=== PATIENT | female | born 1955 | race Caucasian/White ===

== ENCOUNTER 2018-10-29 17:18 | Inpatient (IN) | payer OTHER ==
[~2018-10-29] VITALS: Ht 165.1 cm; Wt 70.0 kg
[~2018-10-29 17:18] MED LIST: ASPI81EC PO; CARV6.25 PO; CHOL10002 PO; CLON.1 PO; KRILL OIL PO
[2018-10-29] MEDS ORDERED: Coreg12.5 MG PO (17:27)
[2018-10-29] MEDS ORDERED: Amlodipine Bes2.5 MG PO (17:27)
[2018-10-29] MEDS ORDERED: Cyclobenzaprine5 MG PO (17:27)
[2018-10-29] MEDS ORDERED: MICROZIDE12.5 MG PO (17:27)
[2018-10-29 17:57] LABS: BASOPHILS ABSOLUTE AUTO 0.05 K/mm3 (0.00-0.23); BASOPHILS PERCENT AUTO 1 % (0-2); EOSINOPHILS ABSOLUTE AUTO 0.06 K/mm3 (0.00-0.68); EOSINOPHILS PERCENT AUTO 1 % (0-6); Hematocrit 39.2 % (33.0-51.0); Hemoglobin 13.4 g/dL (11.5-16.0); IMMATURE GRAN ABSOLUTE AUTO 0.03 K/mm3 (0.00-0.10); IMMATURE GRAN PERCENT AUTO 0 % (0-1); LYMPHOCYTES ABSOLUTE AUTO 1.93 K/mm3 (0.84-5.20); LYMPHOCYTES PERCENT AUTO 20 % (21-46); MONOCYTES ABSOLUTE AUTO 0.65 K/mm3 (0.16-1.47); MONOCYTES PERCENT AUTO 7 % (4-13); Mean Corpuscular HGB 31.9 pg (26.0-34.0); Mean Corpuscular HGB Conc 34.2 g/dL (31.5-36.5); Mean Corpuscular Volume 93 fL (80-100); Mean Platelet Volume 10.7 fL (9.1-12.4); NEUTROPHILS ABSOLUTE AUTO 6.83 K/mm3 (1.96-9.15); NEUTROPHILS PERCENT AUTO 72 % (41-73); Platelet Count 316 K/mm3 (150-400); RDW Coefficient Variation 11.7 % (11.7-14.2); RDW Standard Deviation 39.8 fL (35.1-46.3); White Blood Cell Count 9.55 K/mm3 (4.00-11.30)
[2018-10-29 18:19] LABS: Alanine Aminotransfer (ALT/SGP 19 U/L (12-78); Albumin, Blood 3.9 g/dL (3.4-5.0); Alk Phos 155 U/L (50-136); Anion Gap 6 mmol/L (6-16); Aspartate Aminotrans (AST/SGOT 24 U/L (12-37); Bilirubin, Total 0.4 mg/dL (0.1-1.0); Blood Urea Nitrogen 23 mg/dL (8-24); CO2, Blood 26 mmol/L (21-32); Calcium, Blood 9.4 mg/dL (8.5-10.1); Chloride, Blood 106 mmol/L (98-108); Creatinine, Blood 0.82 mg/dL (0.40-1.00); Glomerular Filtration Rate >60 (60-); Glucose, Blood 115 mg/dL (70-99); Potassium, Blood 4.3 mmol/L (3.5-5.5); Sodium, Blood 138 mmol/L (136-145); Total Protein, Blood 7.9 g/dL (6.4-8.2); Troponin I <0.015 ng/mL (0.000-0.040)
[2018-10-29] MEDS ORDERED: ACYC400 PO (19:51)
[2018-10-29] MEDS ORDERED: Aspir 8181 MG PO (19:53)
[2018-10-29] MEDS ORDERED: AMIT25 PO (19:53)
--- NOTE | 2018-10-29 21:01 | NUR ---
Transfer report from Nory NOLAN on female PT 63 with complaints of chest pain with neg troponin. She has been followed by cardiology and has lt cardiac cath scheduled for this with DR Lind. Currently resting after dilaudid given in ER. Await admission.Will be on tele monitoring cardiac diet. Echo planned
[2018-10-29] MEDS ORDERED: NAPR220 PO (22:36)
--- NOTE | 2018-10-30 04:28 | NUR ---
PT admitted with lt upper epigastric pain 09/15 that radiated to lt breast. PT has ODILIA wears home cpap. DR Ventura updated on lack of cpap protocil and dilaudid ordered every 20 minutes. PT has lt heart cardiac cath ordered outpt for . NPO and consult called. Pallative care consultalso called. CPAP protocol order obtained RT notified. On tele monitor NSR BBB. VSS. CO intermittant nausea. 2nd troponin negative. CO sob with exertion over 1 year, followed by Lui Tran.
--- NOTE | 2018-10-30 08:30 | NUR ---
PT QUITE PLEASANT COOP A/O DENIES PAIN. STATES IF ANY, IS LIGHT RT ABD UPPER. MAYBE 02/15. H/R REG, NO MURMER NOTED. PER TELE NSR AT 88. LUNGS CLEAR. RESP EASY, UNLABORED ON R.A. BT X4 LAST BM LAST NITE. VOIDS PER BATHROOM, INDEPENDANT IN ROOM. BED IN LOW POSITION, CALL LITE IN [facility], CALLS APPROP CONTINUES NPO FOR POSS ANGIO TODAY.
--- NOTE | 2018-10-30 10:11 | NUR ---
PT BP 119/63 P 90. STATES IF TAKES ALL B/P MEDS WILL DROP TOO LOW. STATES DOES TAKE ALL HAS BEEN UNABLE TO FUNCTION SOMETIMES. CALLED DR CARRANZA. HOLD NORERIK AND JH, GIVE COREG. RECOMMENDED TO PT TO TAKE BP BEFORE AND 1-2 HRS AFTER TAKES MEDS, TAKE RESULTS TO . ALSO TO REQUEST HER DR FOR A SLIDING SCALE ON TAKING BP MEDS IF STILL CONCERNED
--- NOTE | 2018-10-30 11:43 | NUR ---
1030 DR PERALTA OKAYED PT TO EAT UNTIL SEEN BY CARDIO 1100 CARDIO CALLED, TO DO ANGIO THIS AFT AT 330, [employer] 300. KEEP NPO
--- NOTE | 2018-10-30 13:50 | NUR ---
Per admit trigger, I met with Lynne to offer information about ACP. She does not feel she needs AD or POLST. "My daughter knows what to do." She is also hopeful for full recovery. No fears or concerns presented. She is satisfied with her Full Code status. I will remain available.
--- NOTE | 2018-10-30 15:09 | NUR ---
Echocardiogram completed
--- NOTE | 2018-10-30 16:26 | NUR ---
PT OUT TO CARDIAC GLASS MAKER AT 1535 PT ITEMS TO NEW PCU ROOM 161
--- NOTE | 2018-10-30 18:09 | NUR ---
SHIFT SUMMARY PT ALERT AND ORIENTED. VS STABLE. RIGHT RADIAL SITE WITH TR BAND IN PLACE 10CC OF AIR. PER [facility]ART CENTER STAFF THERE WAS NO STENTS PLACED. PT COMPLAINS OF RUQ PAIN AND TREATED PER EMAR. PAIN IS WORSE AFTER EATING PER PT. PT EDUCATED ON RIGHT ARM RESTRICTIONS. FAMILY AT BEDSIDE. WILL CONTINUE TO MONITOR CLOSELY AND REPORT TO ONCOMING RN. CALL LIGHT IN REACH.
[2018-10-31 04:16] LABS: BASOPHILS ABSOLUTE AUTO 0.04 K/mm3 (0.00-0.23); BASOPHILS PERCENT AUTO 0 % (0-2); EOSINOPHILS PERCENT AUTO 0 % (0-6); Hematocrit 34.4 % (33.0-51.0); Hemoglobin 11.4 g/dL (11.5-16.0); IMMATURE GRAN ABSOLUTE AUTO 0.08 K/mm3 (0.00-0.10); IMMATURE GRAN PERCENT AUTO 0 % (0-1); LYMPHOCYTES ABSOLUTE AUTO 1.07 K/mm3 (0.84-5.20); LYMPHOCYTES PERCENT AUTO 6 % (21-46); MONOCYTES ABSOLUTE AUTO 1.26 K/mm3 (0.16-1.47); MONOCYTES PERCENT AUTO 7 % (4-13); Mean Corpuscular HGB 31.8 pg (26.0-34.0); Mean Corpuscular HGB Conc 33.1 g/dL (31.5-36.5); Mean Platelet Volume 10.5 fL (9.1-12.4); NEUTROPHILS ABSOLUTE AUTO 16.04 K/mm3 (1.96-9.15); NEUTROPHILS PERCENT AUTO 87 % (41-73); Platelet Count 221 K/mm3 (150-400); RDW Coefficient Variation 11.7 % (11.7-14.2); RDW Standard Deviation 41.2 fL (35.1-46.3); Red Blood Cell Count 3.58 M/mm3 (3.80-5.20); White Blood Cell Count 18.49 K/mm3 (4.00-11.30)
[2018-10-31 04:17] LABS: Mean Corpuscular Volume 96 fL (80-100)
[2018-10-31 04:36] LABS: Alanine Aminotransfer (ALT/SGP 24 U/L (12-78); Albumin/Globulin Ratio 0.8 (0.8-1.8); Alk Phos 121 U/L (50-136); Anion Gap 7 mmol/L (6-16); Aspartate Aminotrans (AST/SGOT 19 U/L (12-37); Bilirubin, Total 1.4 mg/dL (0.1-1.0); Blood Urea Nitrogen 23 mg/dL (8-24); Bun/Creatinine Ratio 27.2 (12.0-20.0); CO2, Blood 28 mmol/L (21-32); Calcium, Blood 8.6 mg/dL (8.5-10.1); Chloride, Blood 103 mmol/L (98-108); Creatinine, Blood 0.85 mg/dL (0.40-1.00); Globulin, Blood 3.8 g/dL (2.2-4.0); Glomerular Filtration Rate >60 (60-); Glucose, Blood 118 mg/dL (70-99); Potassium, Blood 3.4 mmol/L (3.5-5.5); Sodium, Blood 138 mmol/L (136-145); Total Protein, Blood 6.8 g/dL (6.4-8.2)
--- NOTE | 2018-10-31 05:22 | NUR ---
SHIFT SUMMARY PT SLEEPING IN ROOM COMFORTABLY AT THIS TIME. NO ACUTE CHNAGES IN STATUS T/O NIGHT. PT SLEPT WELL, WOKE ONCE TO PAIN AND WAS MEDICATED PER EMAR. RESP EVEN UNLABORED ON RA W/ SATS >92%. TR BAND WAS FULLY DEFLATED AND TR BAND REMOVED WITH WINDOW DRESSING IN PLACE. SITE WNL, NO HEMATOMA NOTED, NO BRUSING. ARM BOARD REMAINS IN PLACE. DENIED CP, DENIES SOB. CALL LIGHT IN REACH. PT INDEPENDENT IN ROOM. CALLS APPROPRIATELY.
--- NOTE | 2018-10-31 08:00 | NUR ---
PT LAYING IN BED AWAKE A/OX3, PLEASANT AND COOPERATIVE WITH CARE, FOLLOWS COMMANDS WELL, DENIES PAIN AT THIS TIME, BUT REPORTS WHEN SHE EATS SHE HAS PAIN, LUNGS ARE CLEAR DIM IN BASES, RESP EVEN AND UNLABORED, NO COUGH NOTED, HRR, TELE IN PLACE RUNNING SR PER MONITOR, SEE STRIP, NO EDEMA NOTED, PPP+2, CAP REFILL <3SEC, VS STABLE, AFEBRILE, IV SITE IS CLEAR AND PATENT, BTX4, ABD FLAT SOFT NONTENDER, VOIDS WITHOUT DIFF, SKIN C/W/D, MAEW, LARA, CALL LIGHT IN REACH. PLAN WAS TO HAVE A HIDDA SCAN BUT NM STATES THEY WONT BE ABLE TO GET TO IT TODAY.
--- NOTE | 2018-10-31 09:55 | NUR ---
Dr. Lind in to see pt, cleared her for surg, Dr. Urbina called and was able to speak to Dr. Lind. pt doing ok, call light in reach.
--- NOTE | 2018-10-31 10:27 | NUR ---
was just notified by day surgery that she will go for surgery tomorrow, as she ate breakfast this am. call light in reach.
--- NOTE | 2018-10-31 18:30 | NUR ---
pt has been medicated for pain several times today, gets very painful after being up to bathroom, states if she holds still she has no pain. visitor in room. no acute changes, will be having surgery in am. npo after mid. call light in reach.
[2018-11-01 03:37] LABS: BASOPHILS ABSOLUTE AUTO 0.04 K/mm3 (0.00-0.23); BASOPHILS PERCENT AUTO 0 % (0-2); EOSINOPHILS PERCENT AUTO 0 % (0-6); Hematocrit 32.5 % (33.0-51.0); Hemoglobin 10.7 g/dL (11.5-16.0); IMMATURE GRAN ABSOLUTE AUTO 0.15 K/mm3 (0.00-0.10); IMMATURE GRAN PERCENT AUTO 1 % (0-1); LYMPHOCYTES ABSOLUTE AUTO 0.91 K/mm3 (0.84-5.20); LYMPHOCYTES PERCENT AUTO 4 % (21-46); MONOCYTES ABSOLUTE AUTO 0.91 K/mm3 (0.16-1.47); MONOCYTES PERCENT AUTO 4 % (4-13); Mean Corpuscular HGB 31.7 pg (26.0-34.0); Mean Corpuscular HGB Conc 32.9 g/dL (31.5-36.5); Mean Corpuscular Volume 96 fL (80-100); Mean Platelet Volume 10.5 fL (9.1-12.4); NEUTROPHILS ABSOLUTE AUTO 19.86 K/mm3 (1.96-9.15); NEUTROPHILS PERCENT AUTO 91 % (41-73); Platelet Count 218 K/mm3 (150-400); RDW Coefficient Variation 11.9 % (11.7-14.2); RDW Standard Deviation 41.7 fL (35.1-46.3); Red Blood Cell Count 3.38 M/mm3 (3.80-5.20); White Blood Cell Count 21.87 K/mm3 (4.00-11.30)
[2018-11-01 03:57] LABS: Albumin, Blood 2.6 g/dL (3.4-5.0); Albumin/Globulin Ratio 0.6 (0.8-1.8); Bilirubin, Total 1.5 mg/dL (0.1-1.0); Bun/Creatinine Ratio 21.5 (12.0-20.0); Calcium, Blood 8.6 mg/dL (8.5-10.1); Creatinine, Blood 1.21 mg/dL (0.40-1.00); Globulin, Blood 4.2 g/dL (2.2-4.0); Potassium, Blood 3.3 mmol/L (3.5-5.5); Total Protein, Blood 6.8 g/dL (6.4-8.2)
--- NOTE | 2018-11-01 05:27 | NUR ---
SHIFT SUMMARY PT SLEEPING IN ROOM COMFORTABLY AT THIS TIME. NO ACUTE CHANGES IN STATSU T.O NIGHT. PT WAS MEDICATED FOR PAIN AT APPROX 2100, AND PT WAS ABLE TO SLEEP T/O NIGHT. PT AWOKE AT APPROX 0430 TO USE RR, REQUESTED PAIN MEDS. PT TO RR AND BACK TO BED W/O ASSIST. REPORTS PAIN INCREASES W/ MOVEMENT. RESP EVEN UNLABORED ON RA W/ SATS >92%. DENIES CP, REPORTS ALL PAIN IS IN R ABD/FLANK. DENIES OTHER NEEDS. PT WAS NPO SINCE 0000 FOR LAP FAYE THIS AM. CALL LIGHT IN REACH.
--- NOTE | 2018-11-01 06:35 | NUR ---
DAY SURGERY RN TO ROOM TO TAKE PT TO SURGERY.
--- NOTE | 2018-11-01 07:00 | NUR ---
History, Chart, Medications and Allergies reviewed before start of procedure. Lungs clear T/O to Auscultation. Patient confirms NPO status and agrees with scheduled surgery. Pre-Op teaching done. Pt verbalizes understanding.
--- NOTE | 2018-11-01 07:10 | NUR ---
REPORT RECIEVED FROM STEVIE NOLAN. PT IS IN PACU FOR LAP FAYE PROCEDURE. WILL ASSUME CARE POST-OP.
--- NOTE | 2018-11-01 12:26 | NUR ---
DRAINED 20CC S/S DRAINAGE OUT OF DOYLE DRAIN, UNABLE TO DOCUMENT IN I&o
--- NOTE | 2018-11-01 12:45 | NUR ---
INITIAL ASSESSMENT: REPORT RECIEVED FROM GLENDA BERMUDEZ, PACU. PER RN PATIENT HAD A LAP FAYE, THE PTS GALLBLADDER WAS GANGRENOUS AND THERE WAS AN ABCESS IN BETWEEN THE GALLBLADDER AND LIVER. THE ABCESS WAS DRAINED AND A DOYLE WAS PLACED. PATIENT ARRIVED TO PCU 11 VIA GURNEY AND WAS SLID TO BED. PT IS SLEEPY BUT AWAKENS WITH VERBAL STIMULI. PT REPORTS HER PAIN IS 2/10 IN HER ABD. HRR, SR WITH A BBB IN THE 80S PER TELEMETRY. LS DIM IN THE BASES, BIOX WNL ON 2L VIA NC. PT IS TAKING SHALLOW BREATHS, PT ENCOURAGED TO TAKE DEEP BREATHS. WHEN AWAKE WILL PROVIDE IS Q1 WA. BT HYPOACTIVE. PT HAS 4X ABD INCISION WITH GAUZE DRESSINGS WITH MEFIX TAPE, CDI. DOYLE DRAIN TO RIGHHT ABD, SECURE AND DRAINING SERRO-SANG DRAINAGE. VSS. PPP. NO EDEMA NOTED. PT ROLLED TO GET EXTRA LINEN OUT. PTS AT BEDSIDE. PT AND DENY OTHER NEEDS. ICE CHIPS GIVEN UNTIL PT IS MORE AWAKE. CALL LIGHT IN REACH, WILL CONTINUE TO MONITO
--- NOTE | 2018-11-01 17:15 | NUR ---
PATIENT HAS BEEN DOING WELL PSOT-OP. CALL PLACED TO DR. PERALTA FOR STATUS CHANGE, PT IS STABLE AND HAS BEEN TOLERATING CLEAR LIQUIDS. REPORT GIVEN TO [facility] RN. PT TRANSFERRED TO [facility] VIA BED.
--- NOTE | 2018-11-01 17:53 | NUR ---
TRANSFER: REPORT RECIEVED FROM BUTTING SAW OPERATORGERI NOLAN. PT TO SURGICAL UNIT AT ABOUT 1720, UPON ASSESSMENT PT IS A/O. SURGICAL SITES WNL, DOYLE DRAINED 20ML BRIGHT RED BLOOD. PT REPORTS HAS BEEN UP AND VOIDED. RATES PAIN 6/10. 0.5 DILAUDID GIVEN. WILL CTM AND PASS REPORT TO NOC RN.
[2018-11-02 05:31] LABS: BASOPHILS ABSOLUTE AUTO 0.03 K/mm3 (0.00-0.23); BASOPHILS PERCENT AUTO 0 % (0-2); EOSINOPHILS ABSOLUTE AUTO 0.01 K/mm3 (0.00-0.68); EOSINOPHILS PERCENT AUTO 0 % (0-6); Hematocrit 29.1 % (33.0-51.0); Hemoglobin 9.6 g/dL (11.5-16.0); IMMATURE GRAN ABSOLUTE AUTO 0.06 K/mm3 (0.00-0.10); IMMATURE GRAN PERCENT AUTO 0 % (0-1); LYMPHOCYTES ABSOLUTE AUTO 0.79 K/mm3 (0.84-5.20); LYMPHOCYTES PERCENT AUTO 6 % (21-46); MONOCYTES ABSOLUTE AUTO 0.76 K/mm3 (0.16-1.47); MONOCYTES PERCENT AUTO 6 % (4-13); Mean Corpuscular HGB 31.7 pg (26.0-34.0); Mean Corpuscular Volume 96 fL (80-100); Mean Platelet Volume 10.7 fL (9.1-12.4); NEUTROPHILS ABSOLUTE AUTO 12.04 K/mm3 (1.96-9.15); NEUTROPHILS PERCENT AUTO 88 % (41-73); Platelet Count 227 K/mm3 (150-400); RDW Coefficient Variation 12.1 % (11.7-14.2); RDW Standard Deviation 42.4 fL (35.1-46.3); Red Blood Cell Count 3.03 M/mm3 (3.80-5.20); White Blood Cell Count 13.69 K/mm3 (4.00-11.30)
[2018-11-02 06:02] LABS: Albumin, Blood 2.1 g/dL (3.4-5.0); Albumin/Globulin Ratio 0.5 (0.8-1.8); Bilirubin, Total 0.8 mg/dL (0.1-1.0); Bun/Creatinine Ratio 24.1 (12.0-20.0); Calcium, Blood 8.1 mg/dL (8.5-10.1); Creatinine, Blood 1.16 mg/dL (0.40-1.00); Potassium, Blood 3.4 mmol/L (3.5-5.5); Total Protein, Blood 6.1 g/dL (6.4-8.2)
--- NOTE | 2018-11-02 08:15 | NUR ---
POD 1 S/P LAP FAYE. PT VSS T/O NIGHT. DRESSING CDI. PAIN MGD PER EMAR W/REP RELIEF. PT UP OOB W/SBA, BRUNO WELL. PT BRUNO SM AMT PO, NO C/O N/V, NO FLATUS YET. IV ABX CONT PER ORDERS. PT USING CALL LIGHT FOR ASSISTANCE, REP GIVEN TO DAY RN.
--- NOTE | 2018-11-02 14:22 | NUR ---
DOYLE DRAIN EMPTIED, 60ML SS FLUID.
--- NOTE | 2018-11-02 19:30 | NUR ---
SHIFT SUMMARY. POD1 LAP FAYE. PATIENT HAS BEEN ALERT AND ORIENTED. AMBULATORY DURING SHIFT. INDEPENDENT IN ROOM TO BATHROOM. NO BM AND REPORTS MINIMAL AMOUNT OF GAS. PAIN MANAGED WITH 2 NORCO DURING SHIFT. LAP SITES COVERED IN GAUZE CDI. DOYLE DRAIN ON RLQ EMPTIED ONCE WITH 60ML OUT. PLAN IS TO DISCHARGE TOMORROW.
[2018-11-03 05:46] LABS: BASOPHILS ABSOLUTE AUTO 0.03 K/mm3 (0.00-0.23); BASOPHILS PERCENT AUTO 0 % (0-2); EOSINOPHILS ABSOLUTE AUTO 0.12 K/mm3 (0.00-0.68); EOSINOPHILS PERCENT AUTO 1 % (0-6); Hematocrit 30.8 % (33.0-51.0); Hemoglobin 10.1 g/dL (11.5-16.0); IMMATURE GRAN ABSOLUTE AUTO 0.04 K/mm3 (0.00-0.10); IMMATURE GRAN PERCENT AUTO 0 % (0-1); LYMPHOCYTES ABSOLUTE AUTO 1.12 K/mm3 (0.84-5.20); LYMPHOCYTES PERCENT AUTO 11 % (21-46); MONOCYTES PERCENT AUTO 8 % (4-13); Mean Corpuscular HGB 31.9 pg (26.0-34.0); Mean Corpuscular HGB Conc 32.8 g/dL (31.5-36.5); Mean Corpuscular Volume 97 fL (80-100); Mean Platelet Volume 10.5 fL (9.1-12.4); NEUTROPHILS ABSOLUTE AUTO 8.23 K/mm3 (1.96-9.15); NEUTROPHILS PERCENT AUTO 80 % (41-73); Platelet Count 262 K/mm3 (150-400); RDW Standard Deviation 43.5 fL (35.1-46.3); Red Blood Cell Count 3.17 M/mm3 (3.80-5.20); White Blood Cell Count 10.34 K/mm3 (4.00-11.30)
[2018-11-03 06:15] LABS: Albumin, Blood 2.2 g/dL (3.4-5.0); Albumin/Globulin Ratio 0.5 (0.8-1.8); Bilirubin, Total 0.6 mg/dL (0.1-1.0); Bun/Creatinine Ratio 18.3 (12.0-20.0); Calcium, Blood 8.5 mg/dL (8.5-10.1); Creatinine, Blood 1.09 mg/dL (0.40-1.00); Globulin, Blood 4.5 g/dL (2.2-4.0); Potassium, Blood 3.4 mmol/L (3.5-5.5); Total Protein, Blood 6.7 g/dL (6.4-8.2)
[2018-11-03] MEDS ORDERED: ACET325 PO (13:02)
[2018-11-03] MEDS ORDERED: HYDR1TAB94 PO ×2 (13:03→13:11)
[2018-11-03] MEDS ORDERED: ONDA4ODT MM (13:04)
[2018-11-03] MEDS ORDERED: AMOCLA875 PO (13:10)
--- NOTE | 2018-11-03 13:36 | NUR ---
Patient up to Ambulate independently. Gait steady. Discharge instructions reviewed with patient. Patient verbalizes understanding. Copy given to patient to take home. Dressing to procedure site clean, dry, intact with no visible drainage, swelling, erythema or bruising noted. Patient States Post-Procedure ride home has been arranged. Discharged via wheelchair to private car for ride home. Prescriptions sent with daughter to [facility].
== END 2018-11-03 13:30 | disposition home or self-care (01) | DRG 418 ==
LOC: ER 17:18 → MEDS 17:19 → PCU 17:19 → MEDS 17:19 → PCU 10-30 17:19 → SURS 11-01 17:25
PROVIDERS: Family Medicine; Internal Medicine Gastroenterology; Physician Assistant; Surgery; ADMIT Hospitalist
PROC: BF12YZZ Fluoroscopy of Gallbladder using Other Contrast (ICD-10-PCS; 2018-11-01)
PROC: B2111ZZ Fluoroscopy of Multiple Coronary Arteries using Low Osmolar Contrast (ICD-10-PCS; 2018-11-01)
PROC: 4A023N7 Measurement of Cardiac Sampling and Pressure, Left Heart, Percutaneous Approach (ICD-10-PCS; 2018-11-01)
PROC: 0FT44ZZ Resection of Gallbladder, Percutaneous Endoscopic Approach (ICD-10-PCS; principal; 2018-11-01 09:00)
DX: K80.00 Calculus of gallbladder with acute cholecystitis without obstruction (principal); I25.110 Atherosclerotic heart disease of native coronary artery with unstable angina pectoris; K82.A1 Gangrene of gallbladder in cholecystitis; I10 Essential (primary) hypertension; N28.9 Disorder of kidney and ureter, unspecified; E78.5 Hyperlipidemia, unspecified; G47.33 Obstructive sleep apnea (adult) (pediatric); G47.00 Insomnia, unspecified; D64.9 Anemia, unspecified
CPT/HCPCS: 36415; 71046; 74300; 76705; 80053; 83690; 83880; 84484; 85025; 88304; 93005; 93010; 93306; 93454; 94762; 96361; 96372; 96374; 96375; 96376; 99152; 99153; 99285-25; A9270; A9270-GY; C1729; C1769; C1894; C9113; G0378; J0171; J0330; J1170; J1644; J1650; J1885; J2250; J2370; J2405; J2543; J2704; J2710; J3010; J7030; J7120; Q9967

== ENCOUNTER → 2018-12-07 | Outpatient (CLI) | payer OTHER ==
[~2018-12-07] MED LIST changes: +ACET325 PO; +ACYC400 PO; +AMIT25 PO; +AMOCLA875 PO; +Amlodipine Bes2.5 MG PO; +Aspir 8181 MG PO; +Coreg12.5 MG PO; +Cyclobenzaprine5 MG PO; +HYDR1TAB94 PO; +MICROZIDE12.5 MG PO; +NAPR220 PO; +ONDA4ODT MM
[2018-12-11 15:07] LABS: HPV 16 Negative (Negative); HPV 18 Negative (Negative); HPV OTHER HR TYPES Negative (Negative)
== END | disposition home or self-care (01) ==
LOC: LAB EV 10:40 → LAB SHORT 10:40
PROVIDERS: Nurse Practitioner Family
DX: Z01.419 Encounter for gynecological examination (general) (routine) without abnormal findings (principal); N76.0 Acute vaginitis; B96.89 Other specified bacterial agents as the cause of diseases classified elsewhere
CPT/HCPCS: 87070; 87205; 87624; G0145

== ENCOUNTER 2019-09-19 09:00 | Day surgery (SDC) | payer OTHER ==
[~2019-09-19] VITALS: Ht 162.6 cm; Wt 69.0 kg
[~2019-09-19 09:00] MED LIST changes: +CHOLP
== END 2019-09-19 12:16 | disposition home or self-care (01) ==
LOC: ORSCSDS 09:00
PROVIDERS: Student in an Organized Health Care Education/Training Program
PROC: 0DBK8ZX Excision of Ascending Colon, Via Natural or Artificial Opening Endoscopic, Diagnostic (ICD-10-PCS; principal; 2019-09-19 10:30)
PROC: 0DB78ZX Excision of Stomach, Pylorus, Via Natural or Artificial Opening Endoscopic, Diagnostic (ICD-10-PCS; principal; 2019-09-19 10:30)
PROC: 0DBH8ZX Excision of Cecum, Via Natural or Artificial Opening Endoscopic, Diagnostic (ICD-10-PCS; principal; 2019-09-19 10:30)
PROC: 0DB58ZX Excision of Esophagus, Via Natural or Artificial Opening Endoscopic, Diagnostic (ICD-10-PCS; principal; 2019-09-19 10:30)
PROC: 0DBN8ZX Excision of Sigmoid Colon, Via Natural or Artificial Opening Endoscopic, Diagnostic (ICD-10-PCS; principal; 2019-09-19 10:30)
PROC: 0DBE8ZX Excision of Large Intestine, Via Natural or Artificial Opening Endoscopic, Diagnostic (ICD-10-PCS; principal; 2019-09-19 10:30)
PROC: 0DB98ZX Excision of Duodenum, Via Natural or Artificial Opening Endoscopic, Diagnostic (ICD-10-PCS; principal; 2019-09-19 10:30)
DX: R19.7 Diarrhea, unspecified (principal); R13.14 Dysphagia, pharyngoesophageal phase; K30 Functional dyspepsia; K31.7 Polyp of stomach and duodenum; K29.70 Gastritis, unspecified, without bleeding; K44.9 Diaphragmatic hernia without obstruction or gangrene; K22.2 Esophageal obstruction; I10 Essential (primary) hypertension; Z79.899 Other long term (current) drug therapy
CPT/HCPCS: 88305; 88342; J2704; J7120

== ENCOUNTER 2020-07-14 18:51 | Emergency (ER) | payer OTHER ==
[~2020-07-14] VITALS: Ht 162.6 cm; Wt 65.8 kg
[2020-07-14 19:18] LABS: BASOPHILS ABSOLUTE AUTO 0.04 K/mm3 (0.00-0.23); BASOPHILS PERCENT AUTO 1 % (0-2); EOSINOPHILS ABSOLUTE AUTO 0.01 K/mm3 (0.00-0.68); EOSINOPHILS PERCENT AUTO 0 % (0-6); Hematocrit 39.6 % (33.0-51.0); Hemoglobin 13.4 g/dL (11.5-16.0); IMMATURE GRAN ABSOLUTE AUTO 0.01 K/mm3 (0.00-0.10); IMMATURE GRAN PERCENT AUTO 0 % (0-1); LYMPHOCYTES ABSOLUTE AUTO 2.31 K/mm3 (0.84-5.20); LYMPHOCYTES PERCENT AUTO 29 % (21-46); MONOCYTES ABSOLUTE AUTO 0.53 K/mm3 (0.16-1.47); MONOCYTES PERCENT AUTO 7 % (4-13); Mean Corpuscular HGB 31.5 pg (26.0-34.0); Mean Corpuscular HGB Conc 33.8 g/dL (31.5-36.5); Mean Corpuscular Volume 93 fL (80-100); Mean Platelet Volume 10.3 fL (9.1-12.4); NEUTROPHILS ABSOLUTE AUTO 5.15 K/mm3 (1.96-9.15); NEUTROPHILS PERCENT AUTO 64 % (41-73); Platelet Count 281 K/mm3 (150-400); RDW Coefficient Variation 11.4 % (11.7-14.2); RDW Standard Deviation 38.9 fL (35.1-46.3); Red Blood Cell Count 4.26 M/mm3 (3.80-5.20); White Blood Cell Count 8.05 K/mm3 (4.00-11.30)
[2020-07-14 19:40] LABS: Alanine Aminotransfer (ALT/SGP 15 U/L (12-78); Albumin, Blood 3.9 g/dL (3.4-5.0); Albumin/Globulin Ratio 0.9 (0.8-1.8); Alk Phos 137 U/L (50-136); Anion Gap 7 mmol/L (6-16); Aspartate Aminotrans (AST/SGOT 12 U/L (12-37); Bilirubin, Total 0.8 mg/dL (0.1-1.0); Blood Urea Nitrogen 17 mg/dL (8-24); Bun/Creatinine Ratio 15.7 (12.0-20.0); CO2, Blood 25 mmol/L (21-32); Calcium, Blood 9.5 mg/dL (8.5-10.1); Chloride, Blood 107 mmol/L (98-108); Creatinine, Blood 1.08 mg/dL (0.40-1.00); Globulin, Blood 4.3 g/dL (2.2-4.0); Glomerular Filtration Rate 54 (60-); Glucose, Blood 118 mg/dL (70-99); Potassium, Blood 3.9 mmol/L (3.5-5.5); Sodium, Blood 139 mmol/L (136-145); Total Protein, Blood 8.2 g/dL (6.4-8.2); Troponin I <0.015 ng/mL (0.000-0.040)
[2020-07-14 19:57] LABS: Source, Urine Clean Catch
[2020-07-14 19:59] LABS: Appearance, Urine Clear (Clear); Blood, Urine 1+ (Neg); Color, Urine Amber (P-Yellow); Glucose Qualitative, Urine Neg (Neg); Ketones, Urine 1+ (Neg); Leukocyte Esterase, Urine 1+ (Neg); Nitrite, Urine Neg (Neg); Protein, Urine 2+ (Neg); Specific Gravity, Urine 1.025 (1.003-1.022); Urobilinogen, Urine 1+ (Normal)
[2020-07-14 20:02] LABS: Bilirubin, Urine 1+ (Neg)
[2020-07-14 20:06] LABS: Hyaline Casts 25-50 /lpf (0-2); Mucus Heavy (0-Heavy)
[2020-07-14 20:07] LABS: Amorphous Light (0-Heavy); Bacteria Few /hpf; Squamous Epithelial Cells Rare /hpf (Few)
[2020-07-14] MEDS ORDERED: Pepcid20 MG PO (22:21)
== END 2020-07-14 22:48 | disposition home or self-care (01) ==
LOC: ER 18:51
PROVIDERS: Emergency Medicine; Physician Assistant
DX: R07.9 Chest pain, unspecified (principal); I10 Essential (primary) hypertension; E78.5 Hyperlipidemia, unspecified; Z88.6 Allergy status to analgesic agent; Z79.899 Other long term (current) drug therapy
CPT/HCPCS: 36415; 71046; 80053; 81001; 83880; 84484; 85025; 87086; 93005; 93010; 96374; 99284-25; A9270

== ENCOUNTER 2020-07-27 07:24 | Day surgery (SDC) | payer OTHER ==
[~2020-07-27 07:24] MED LIST changes: +Pepcid20 MG PO
== END 2020-07-28 02:59 | disposition home or self-care (01) ==
LOC: MOI US 07:24
DX: N64.89 Other specified disorders of breast (principal)
CPT/HCPCS: 19083; 77065; 88305; A4648

== ENCOUNTER → 2023-02-07 | Outpatient (CLI) | payer OTHER | LOC: LAB SHORT 08:21 → LAB 08:21 | DX: L82.1 Other seborrheic keratosis (principal) | CPT/HCPCS: 88305 ==

== ENCOUNTER 2023-04-01 20:06 | Emergency (ER) | payer OTHER ==
[~2023-04-01] VITALS: Ht 165.1 cm; Wt 62.1 kg
[2023-04-01] MEDS ORDERED: OMEP20ER PO (20:31)
[2023-04-01] MEDS ORDERED: Cyclobenzaprine5 MG PO (20:32)
[2023-04-01 20:37] LABS: BASOPHILS ABSOLUTE AUTO 0.04 K/mm3 (0.00-0.23); BASOPHILS PERCENT AUTO 0 % (0-2); EOSINOPHILS ABSOLUTE AUTO 0.02 K/mm3 (0.00-0.68); EOSINOPHILS PERCENT AUTO 0 % (0-6); Hematocrit 40.4 % (33.0-51.0); Hemoglobin 13.7 g/dL (11.5-16.0); IMMATURE GRAN ABSOLUTE AUTO 0.03 K/mm3 (0.00-0.10); IMMATURE GRAN PERCENT AUTO 0 % (0-1); LYMPHOCYTES ABSOLUTE AUTO 2.86 K/mm3 (0.84-5.20); LYMPHOCYTES PERCENT AUTO 29 % (21-46); MONOCYTES ABSOLUTE AUTO 0.51 K/mm3 (0.16-1.47); MONOCYTES PERCENT AUTO 5 % (4-13); Mean Corpuscular HGB Conc 33.9 g/dL (31.5-36.5); Mean Corpuscular Volume 91 fL (80-100); Mean Platelet Volume 10.4 fL (9.1-12.4); NEUTROPHILS PERCENT AUTO 65 % (41-73); Platelet Count 284 K/mm3 (150-400); RDW Coefficient Variation 11.5 % (11.7-14.2); RDW Standard Deviation 38.7 fL (35.1-46.3); Red Blood Cell Count 4.42 M/mm3 (3.80-5.20); White Blood Cell Count 9.96 K/mm3 (4.00-11.30)
[2023-04-01 20:55] LABS: Albumin, Blood 3.9 g/dL (3.4-5.0); Bilirubin, Total 0.3 mg/dL (0.1-1.0); Bun/Creatinine Ratio 22.1 (12.0-20.0); Calcium, Blood 9.7 mg/dL (8.5-10.1); Creatinine, Blood 1.04 mg/dL (0.40-1.00); Globulin, Blood 4.1 g/dL (2.2-4.0); Potassium, Blood 3.7 mmol/L (3.5-5.5)
[2023-04-01] MEDS ORDERED: Metoprolol Tartrate 1 MG/ML 5 ML VIAL IV ONE (21:15)
[2023-04-01 21:21] LABS: Magnesium, Blood 2.4 mg/dL (1.6-2.4)
[2023-04-01] MEDS ORDERED: Metoprolol Tartrate 25 MG Tab PO ONE (22:20)
[2023-04-01] MEDS ORDERED: Diltiazem HCl 5 MG / ML 5ML Vial IV ONE (23:05)
[2023-04-01] MEDS ORDERED: Ondansetron HCl 2 MG / ML 2ML Vial IV ONE (23:55)
[2023-04-01] MEDS ORDERED: Lactated Ringer's 1,000 ML IV ONE (23:55)
[2023-04-01] MEDS ORDERED: Propofol 10mg/ml 20 ml Vial (Procedural) IV SCH (23:55)
[2023-04-02] MEDS ORDERED: Lopressor 25 mg25 MG PO (00:53)
[2023-04-02 02:30] VITALS: BP 124/76
== END 2023-04-02 02:44 | disposition home or self-care (01) ==
LOC: ER 20:06
PROVIDERS: Student in an Organized Health Care Education/Training Program
DX: I48.0 Paroxysmal atrial fibrillation (principal); L98.6 Other infiltrative disorders of the skin and subcutaneous tissue; Z88.8 Allergy status to other drugs, medicaments and biological substances; Z79.899 Other long term (current) drug therapy; I10 Essential (primary) hypertension; E78.5 Hyperlipidemia, unspecified; G47.00 Insomnia, unspecified
CPT/HCPCS: 71046; 80053; 83735; 83880; 84484; 85025; 92960; 93005; 93010; 96361-59; 96374; 96375-59; 99152; 99153; 99285-25; A9270; J2405; J2704; J7120

== ENCOUNTER 2023-08-16 09:08 | Day surgery (SDC) | payer OTHER ==
[2023-08-16] VITALS (16 sets, daily range): BP systolic 101–196; BP diastolic 53–94
[~2023-08-16] VITALS: Ht 165.1 cm; Wt 59.1 kg
[~2023-08-16 09:08] MED LIST changes: +ALMACONE SUSPE355 ML PO; +Lopressor 25 mg25 MG PO; +METO25 PO; +OMEP20ER PO
[2023-08-16] MEDS ORDERED: CeFAZolin Sodium 2,000 MG in NS 100 ML IV SCH (10:05)
[2023-08-16] MEDS ORDERED: Lactated Ringer's 1,000 ML IV SCH (10:05)
[2023-08-16] MEDS ORDERED: Lidocaine HCl 1% 5 ML SYR INJ ONE (10:25)
[2023-08-16] MEDS ORDERED: ELIQUIS2.5 MG PO (10:27)
[2023-08-16] MEDS ORDERED: FentaNYL Citrate 50 MCG/ML 2 ML Injection ONE ×2 (10:28→12:15)
[2023-08-16] MEDS ORDERED: Cyclobenzaprine5 MG (10:28)
[2023-08-16] MEDS ORDERED: propofoL 20 ML IV ONE (10:28)
[2023-08-16] MEDS ORDERED: Dexamethasone Sod Phos 10 MG/ML 1ML VIAL ONE (10:29)
[2023-08-16] MEDS ORDERED: Ondansetron HCl 2 MG / ML 2ML Vial ONE (10:29)
[2023-08-16] MEDS ORDERED: Midazolam HCl 1MG / ML 2ML Vial IV PRN (10:30)
[2023-08-16] MEDS ORDERED: Bupivacaine 0.5% HCl 5 MG/ML 30MLVIAL ONE (11:03)
[2023-08-16] MEDS ORDERED: Methylene Blue 1% 100 MG/10 ML VIAL ONE (11:03)
[2023-08-16] MEDS ORDERED: Scopolamine Hydrobromide Patch TOP ONE (11:05)
--- NOTE | 2023-08-16 12:02 | NUR ---
08/16/[address] INJECTED 7CC OF METHILINE BLUE INTO THE RIGHT BREAST PRIOR TO SURGERY
[2023-08-16] MEDS ORDERED: Ketorolac Tromethamine 30mg Vial ONE (12:57)
[2023-08-16] MEDS ORDERED: Ondansetron HCl 2 MG / ML 2ML Vial IV PRN (13:30)
[2023-08-16] MEDS ORDERED: Acetaminophen 325 MG TABLET PO PRN (13:30)
[2023-08-16] MEDS ORDERED: FentaNYL Citrate 50 MCG/ML 2 ML Injection IV PRN (13:30)
[2023-08-16] MEDS ORDERED: HYDROcodone 5-APAP 325 TAB PO PRN (13:30)
--- NOTE | 2023-08-16 14:52 | NUR ---
PT ARRIVED FROM PACU AT APPROXIMATELY 1400. PT AWARE AND ORIENTED BUT DROWSY. PT DENIED PAIN UPON ARRIVAL. VSS, PT ON RA. CALL LIGHT PLACED WITHIN REACH.
--- NOTE | 2023-08-16 16:34 | NUR ---
SHIFT SUMMARY PT IS POD#0. PAIN MANAGED WITH NORCO. BEDSIDE REPORT GIVEN DAVE NOLAN.
--- NOTE | 2023-08-16 16:54 | NUR ---
DR. DOUGLAS WAS JUST AT BEDSIDE TO ASSESS THE PATIENTS DOYLE DRAINS IN WHICH BLOOD WAS SEEN DRIPPING DOWN HER RIGHT SIDE WHERE THE X2 DOYLE DRAINS ARE PLACED. DR. DOUGLAS CHANGED THE DRESSING THAT WAS PLACED AROUND THE DOYLE DRAIN SITES WITH GAUZE AND TEGADERM. THEN PLACED AN ABD PAD OVER THE TEGADERM AND PUT THE BANDEAU BACK IN PLACE WHICH IS NOW C/D/I. DR. DOUGLAS STATED TO CHANGE THE DRESSING NEEDED IF IT BECOMES SATURATED AGAIN. PATIENT IS LAYING IN BED WITH CALL LIGHT IN REACH AND FAMILY AT BEDSIDE. DR. DOUGLAS WROTE A HARD PERSCRIPTION IN WHICH IT WAS GIVEN TO A FAMILY MEMBER AT BEDSIDE TO DROP OFF AT A PHARMACY. HARD PERSCRIPTION COPY IS IN PATIENTS PHYSICAL CHART.
--- NOTE | 2023-08-16 17:25 | NUR ---
SHIFT SUMMARY: POD 0 RIGHT MASTECTOMY PATIENT IS A&OX4. VS ARE WNL AND IS ON RA. PAIN IS MANAGED WITH PO 2 NORCO PER EMAR. PATIENT HAS X2 DOYLE DRAINS ON HER RIGHT CHEST SIDE WITH BOTH BULBS COMPRESSED WITH DARK RED OUTPUT AND GAUZE WITH ABD PAD IN PLACE UNDER HER BREAST BINDER THAT IS C/D/I AT THIS TIME (SEE PRIOR NURSES NOTE). PATIENT IS TOLERATING PO INTAKE AND DENIES NAUSEA OR VOMITING. SHE IS LAYING IN BED WITH CALL LIGHT IN REACH. PATIENT CALLS APPROPRIATELY. FAMILY IS AT BEDSIDE.
[2023-08-17 02:32] VITALS: BP 110/55
--- NOTE | 2023-08-17 04:49 | NUR ---
SHIFT SUMMARY POD 1 R MASTECTOMY. NO ACUTE CHANGES OVERNIGHT. VSS. TOLERATING ORALS, SCOPOLAMINE PATCH IN PLACE. PT REPORTS BASELINE "LIGHTHEADEDNESS" WITH AMBULATION, SBA. VOIDING IND. PT REPORTS PAIN TOLERABLE, MEDICATED PER EMAR. INCISION SITE c STERI STRIPS C/D/I. DOYLE DRAIN x2 DRAINING SS FLUID IN BULBS; SANG DRAINAGE AT INSTERTION SITE. CHEST BINDER IN PLACE c DRIED SANG DRAINAGE ON BOTTOM R SITE. ANTICIPATED D/C LATER TODAY. CALL LIGHT IN REACH, BED IN LOWEST POSITION, WILL REPORT TO DAY RN.
[2023-08-17 07:06] VITALS: BP 125/60
[2023-08-17] MEDS ORDERED: HYDROCODONE-AC1 EA11 PO (08:32)
--- NOTE | 2023-08-17 08:57 | NUR ---
DISCHARGE NOTE: PATIENT AND PATIENTS DAUGHTER WERE BOTH EDUCATED ON DISCHARGE INSTRUCTIONS, ESPECIALLY ON DOYLE DRAINS/RECORDING COLOR AND AMOUNT AND WOUND CARE DRESSING CHANGES. BOTH VERBALIZED UNDERSTANDING OF INSTRUCTIONS AND HAD NO FURTHER QUESTIONS AT THIS TIME. HARD PERSCRIPTION HAS ALREADY BEEN FILLED OUT YESTERDAY BY FAMILY. DR. DOUGLAS WAS AT BEDSIDE THIS MORNING WITH THIS NURSE AND ASSESSED HER DRESSINGS UNDER HER CHEST BINDER. HER STERI STRIPS ON CHEST WERE C/D/I. PATIENT HAS X2 DOYLE DRAINS ON HER RIGHT SIDE WITH GAUZE AND TEGADERM THAT WERE ALSO C/D/I. BOTH DOYLE DRAIN BULBS ARE COMPRESSED AND HAVE DARK RED OUTPUT. PATIENT IS TOLERATING PO INTAKE AND IS VOIDING. SHE IS DRESSED AND HAS PERSONAL ITEMS IN THE ROOM GATHERED INCLUDING AN EXTRA BAG OF WOUND DRESSING CHANGE SUPPLIES. SHE IS BEING WHEELCHAIRED OUT TO HER DAUGHTERS CAR TO BE TAKEN HOME. IV WAS TAKEN OUT AND WNL. PAIN IS MANAGED WITH PO PAIN MEDS.
== END 2023-08-17 09:19 | disposition home or self-care (01) ==
LOC: ORSCMMR 09:08 → NM 09:08 → SURS 13:53 → NM 08-17 09:19
PROVIDERS: Surgery
PROC: 0HBT0ZZ Excision of Right Breast, Open Approach (ICD-10-PCS; principal; 2023-08-16 11:00)
PROC: 07B50ZX Excision of Right Axillary Lymphatic, Open Approach, Diagnostic (ICD-10-PCS; principal; 2023-08-16 11:00)
DX: C50.511 Malignant neoplasm of lower-outer quadrant of right female breast (principal); C77.3 Secondary and unspecified malignant neoplasm of axilla and upper limb lymph nodes; Z17.0 Estrogen receptor positive status [ER+]; I12.9 Hypertensive chronic kidney disease with stage 1 through stage 4 chronic kidney disease, or unspecified chronic kidney disease; N18.30 Chronic kidney disease, stage 3 unspecified; K21.9 Gastro-esophageal reflux disease without esophagitis; I48.0 Paroxysmal atrial fibrillation; E78.5 Hyperlipidemia, unspecified; Z79.899 Other long term (current) drug therapy; Z79.85 Long-term (current) use of injectable non-insulin antidiabetic drugs
CPT/HCPCS: 38792; 88307; A9270; A9520; J0690; J1100; J1885; J2250; J2405; J2704; J3010; J7120; Q9968